=== PATIENT | female | born 1960 | race Caucasian/White ===

== ENCOUNTER 2016-02-20 06:25 | Observation (INO) | payer OTHER ==
--- NOTE | 2016-02-07 07:20 | HP ---
HISTORY AND PHYSICAL: DATE OF PLANNED ADMISSION AND SURGERY: 02/20/16 - [facility] HISTORY OF PRESENT ILLNESS: Mrs. Zarate is a 55-year-old white female who is admitted with a right renal calculus for shockwave lithotripsy and for right ureteral stent placement. Mrs. 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 In 1993, she underwent shockwave lithotripsy of left renal calculus. The left renal calculi became larger and in 2009, she underwent another shockwave lithotripsy of left renal calculi with placement of left ureteral stent. There was only partial fragmentation of the stones. She had been monitored with periodic ultrasounds. She has had on and off episodes of colic. On her renal ultrasound one year ago, she had a 3-mm calculus in the lower pole of the right kidney and 2 calculi each about 1 cm in the lower pole of the left kidney. She presented last month with recurrent episodes of right flank pain associated with gross hematuria. Work-up with renal ultrasound showed a 1 cm calculus in the right renal pelvis just proximal to the ureteropelvic junction associated with mild hydronephrosis. The left renal calculi were unchanged. The patient then had a KUB, which confirmed the presence of a radiopaque calculus in the area of the right renal pelvis and also the left renal calculi. The right renal calculus looked less dense than the left renal calculi. Because of the above history and findings and the position and the size of the right renal calculus, the patient is admitted for the above procedure. PAST MEDICAL HISTORY AND SYSTEM REVIEW: Completely negative. She is in excellent health. MEDICATIONS: Her old medication is Lipitor. She denies any cardiac or pulmonary diseases or symptoms. She is on progesterone estrogen patch. ALLERGIES: She has no allergies to any medications. PHYSICAL EXAMINATION GENERAL: Pleasant, healthy, and fit looking white female. VITAL SIGNS: Blood pressure 110/70, pulse of 60. HEART AND LUNGS: Exam of her heart and lungs is normal. ABDOMEN: Her abdominal exam is normal. She has minimal right flank tenderness. IMPRESSION: 1. Intermittent episodes of right flank pain associated with gross hematuria secondary to 1 cm calculus in the right renal pelvis acting as a ball valve. 2. Non-obstructing calculi in the lower pole kay of the left kidney, each measuring about 1 cm in size and densely radiopaque. PLAN: Plan is for shockwave lithotripsy of the right renal calculus with placement of left ureteral stent to avoid right renal colic with the passage of the stone fragments. After successful treatment of the right renal calculi, the patient will be referred for percutaneous lithotripsy of the left renal calculi. I discussed the above plans in detail with the patient. All her questions were answered. CC: Charlene Muhammad NP* [id number]/[facility] #: [id number] [facility]
[~2016-02-20 06:25] MED LIST: Buffered Lidocaine 1% SYR 3ML* 3 ML/SYR SYRINGE INTRADERM ONE
[2016-02-20] MEDS ORDERED: Buffered Lidocaine 1% SYR 3ML* 3 ML/SYR SYRINGE ONE (06:57)
[2016-02-20] MEDS ORDERED: Iohexol 180 (CONTRAST) 10 ML SDV IV ONE (07:25)
--- NOTE | 2016-02-20 07:51 | RAD ---
INDICATION: Right renal calculus COMPARISON: Most recent comparison images dated April 06, 2015 TECHNIQUE: A single view of the abdomen was obtained. FINDINGS: There are no acute bony or soft tissue abnormalities. The bowel gas pattern is normal. There is a moderate amount of stool overlying the renal shadows. At the expected location of the right collecting system there is an 8 mm calcification unchanged in size, morphology or location relative to the previous radiograph. Also stable are 2 calcifications overlying the expected location of the left collecting system measuring 6 and 10 mm respectively, also unchanged. There are no new large calcifications overlying either ureter or the urinary bladder. IMPRESSION: STABLE APPEARANCE OF RENAL CALCIFICATIONS DESCRIBED ABOVE.
[2016-02-20] MEDS ORDERED: cefTRIAXone VIAL(*) 1,000 MG in NS 0.9% 50 ML* 50 ML IVPB ONE (08:00)
[2016-02-20] MEDS ORDERED: fentaNYL* 50 MCG/ML 2 ML VIAL (100 MCG VIAL) ONE ×3 (08:04→13:27)
[2016-02-20] MEDS ORDERED: Midazolam* 1 MG/ML 5 ML VIAL (5 MG) ONE (08:04)
[2016-02-20] MEDS ORDERED: Chloroprocaine 2%* 20 ML VIAL ONE (08:32)
[2016-02-20] MEDS ORDERED: DiMENhydriNATE IV* 50 MG/ML VIAL IV PUSH PRN (08:35)
[2016-02-20] MEDS ORDERED: HYDROmorphone INJ* 1 MG/ML CARPUJECT SYRINGE IV PRN (08:35)
[2016-02-20] MEDS ORDERED: HYDROmorphone INJ* 1 MG/ML CARPUJECT SYRINGE ONE (09:58)
[2016-02-20] MEDS: fentaNYL* 50 MCG/ML 2 ML VIAL (100 MCG VIAL) IV PRN ×2 (09:59→13:33)
[2016-02-20] MEDS ORDERED: oxyCODONE/Acetamin 5/325 MG* TAB ONE ×2 (11:02→11:33)
[2016-02-20] MEDS ORDERED: Oxybutynin TAB* 5 MG ONE (11:42)
--- NOTE | 2016-02-20 11:46 | OP ---
OPERATIVE REPORT: DATE OF OPERATION: 02/20/16 - SSU [id number] DATE OF : 62 SURGEON: Jigar Elizondo MD ANESTHESIOLOGIST: Dr. Reed Harrison. ANESTHESIA: Spinal. PRE-OP DIAGNOSIS: Right renal calculus (UPJ level, 1 cm). POST-OP DIAGNOSIS: Right renal calculus (UPJ level, 1 cm). OPERATIVE PROCEDURE: 1. Shock wave lithotripsy of right renal calculus (1 cm). 2. Cystoscopy, right retrograde pyelography, and placement of right ureteral stent (4.7-Mozambican). INDICATIONS: Mrs. Nuno is a 55-year-old white female who is a known stone former and who presented about one month ago with recurrent episodes of right flank pain associated with gross hematuria secondary to 1-cm calculus at the right ureteropelvic junction. The patient wanted to hold off on any treatment until after the holidays. She has had on and off episodes of pain since she was last seen. She is now admitted for treatment for the above procedure. PATHOLOGY: Preoperative KUB and fluoroscopy on the operating table confirmed the presence of 1 cm triangular-shaped calculus at the level of the right ureteropelvic junction. There were 2 calculi, each measuring about 1 cm located in the lower pole calyx of the left kidney. At cystoscopy, after the shock wave lithotripsy, there was bloody efflux coming from the right orifice. PROCEDURE: After successful spinal anesthesia, the patient was placed in the supine position on the shock wave lithotripsy table. The right renal calculus was visualized in both the PA and oblique x-ray views and the position of the patient and of the generator were adjusted to have the stone in the focus of the shock waves. A total of 1,500 shocks were then delivered at a rate of 90 shocks per minute. A 2-minute break was taken after the initial 200 shocks. The proper positioning and fragmentation of the stone were monitored periodically. The stone fragmented very nicely at about 900 shocks. The smaller fragments, which were in the renal pelvis and in the lower pole calyx, were then individually shocked. At the completion of the treatment, there was very good fragmentation and minimal stone fragments were seen. Because of the concern about edema at the ureteropelvic junction from the chronic presence of the stone, I decided to proceed with the stent placement. The patient was placed in the lithotomy position and prepped and draped. Cystoscopy was performed. Retrograde pyelography was then performed. A size 4.7-Mozambican stent was then fed on top of the guidewire and positioned with the proximal end coiling in an upper pole calyx and the distal end coiling inside the bladder. There was good drainage of contrast from the kidney and no extravasation. The patient tolerated the procedures well and left the operating room in good condition. The plan is to see the patient see next week in the office for renal ultrasound and stent removal. CC: Charlene Muhammad NP* [id number]/[facility] #: [id number] [facility]
[2016-02-20] MEDS ORDERED: DiMENhydriNATE IV* 50 MG/ML VIAL ONE (13:27)
[2016-02-20] MEDS ORDERED: Oxybutynin TAB* 5 MG PO PRN (15:06)
[2016-02-20] MEDS ORDERED: oxyCODONE/Acetamin 5/325 MG* TAB PO PRN (15:06)
[2016-02-20] MEDS ORDERED: Morphine INJ* 2 MG/ML 1 ML CARPUJECT IV PRN (15:07)
[2016-02-20] MEDS ORDERED: Ondansetron INJ* 2 MG/ML VIAL IV PRN (15:07)
[2016-02-20 16:03] VITALS: BP 117/76
--- NOTE | 2016-02-20 16:45 | RAD ---
Indication: Post lithotripsy RIGHT kidney. Comparison: Abdomen radiograph of the same date 0704 hours Technique: Unilateral RIGHT renal ultrasound. Report: The RIGHT kidney measures 11.5 x 4.0 x 4.4 cm. Normal cortical echogenicity. Mild pelvicaliectasis. Pigtail of the ureteral stent visualized extending to the inferior pole. While conspicuity is limited due to the stent there is suggestion of a potential 0.8 cm stone at the lower pole corresponding with stone visualized on abdomen radiograph of the same date. Small volume of perinephric fluid. IMPRESSION: RIGHT ureteral stent in place. Mild pelvicaliectasis. While conspicuity is limited due to the stent there is suggestion of a potential 0.8 cm stone at the lower pole corresponding with stone visualized on abdomen radiograph of the same date.
--- NOTE | 2016-07-06 16:18 | DS ---
DISCHARGE SUMMARY: DATE OF ADMISSION: 02/20/16 DATE OF DISCHARGE: 02/20/16 FINAL DIAGNOSES: 1. Bilateral renal calculi. 2. Acute postop right flank pain. OPERATION: 1. Shockwave lithotripsy of right renal calculus (1 cm). 2. Cystoscopy and placement of right ureteral stent (4.7-Ukrainian on 02/20/16). HISTORY: Mrs. Zarate is a known stone former and she was recently noted to have a 1 cm partially obstructing calculus in the right renal pelvis. She is known to have several nonobstructing left renal calculi. Because of the size of the right renal calculus and its location, the patient was admitted for shockwave lithotripsy and right stent placement. Preoperative physical exam was all within normal. Preoperative lab work was also normal. The patient is very healthy. Her only medications are Lipitor and a hormone patch. COURSE IN HOSPITAL: The patient was admitted the morning of her procedure. She underwent an uncomplicated shockwave lithotripsy of a right renal calculus, with very good fragmentation noted at the end of the procedure. Because of the size of the stone, she had placement of a right ureteral stent (4.7-Ukrainian). In the recovery room, the patient was complaining of severe right flank pain, which was difficult to control with oral pain medications. She was continued on the IV fluids. She was not felt to be a candidate to go home because of the severity of the pain. She had a renal ultrasound, which showed no hydronephrosis , no hematoma, and the stent was in good position and there seemed to be good fragmentation of the stone. The patient was admitted to the floor, however 2 to 3 hours later, the pain completely resolved and she felt very well. She was discharged home from the floor on the same day of her procedure on postoperative pain medication and. The plan is to see the patient in the office in a week or two and decision will be made regarding stent removal. Instructions were given for followup care. [id number]/[facility] #: [id number] [facility]
== END 2016-02-20 17:45 | disposition home or self-care (01) ==
LOC: OR 06:25 → SSU 14:53
PROVIDERS: ADMIT Urology; ATTEND Urology
PROC: 0TC08ZZ Extirpation of Matter from Right Kidney, Via Natural or Artificial Opening Endoscopic (ICD-10-PCS; 2016-02-20)
PROC: 0TF3XZZ Fragmentation in Right Kidney Pelvis, External Approach (ICD-10-PCS; principal; 2016-02-20 07:45)
DX: N20.0 Calculus of kidney (principal); Z87.442 Personal history of urinary calculi
CPT/HCPCS: 74000; 76775; A9270-GY; C1876; G0378; J0696; J1170; J1240; J2250; J2400; J3010